=== PATIENT | male | born 1950 | race Caucasian/White ===

== ENCOUNTER → 2016-11-15 | Outpatient (CLI) | payer BC | LOC: RAD 13:34 | PROVIDERS: ATTEND Nurse Practitioner Family | DX: R09.89 Other specified symptoms and signs involving the circulatory and respiratory systems (principal) | CPT/HCPCS: 71020 ==

== ENCOUNTER → 2016-11-27 | Outpatient (CLI) | payer BC | LOC: RAD 08:34 | PROVIDERS: ATTEND Nurse Practitioner Family | DX: R74.8 Abnormal levels of other serum enzymes (principal); N13.2 Hydronephrosis with renal and ureteral calculous obstruction | CPT/HCPCS: 74177; 82565 ==

== ENCOUNTER → 2016-12-11 | Outpatient (CLI) | payer BC | LOC: RAD 10:06 | PROVIDERS: ATTEND Urology | DX: N20.0 Calculus of kidney (principal) | CPT/HCPCS: 78707; A9562 ==

== ENCOUNTER → 2018-08-25 | Outpatient (CLI) | payer BC, MEDICARE ==
--- NOTE | 2018-08-25 16:47 | RADIOLOGY REPORT (SQ) ---
EXAM DESCRIPTION: CHEST PA/LATERAL COMPLETED DATE/TIME: 08/25/2018 4:37 pm REASON FOR STUDY: COPD COMPARISON: 11/15/2016. EXAM PARAMETERS: NUMBER OF VIEWS: two views TECHNIQUE: Digital Frontal and Lateral radiographic views of the chest acquired. RADIATION DOSE: NA LIMITATIONS: none FINDINGS: LUNGS AND PLEURA: No opacities, masses or pneumothorax. No pleural effusion. MEDIASTINUM AND HILAR STRUCTURES: No masses or contour abnormalities. HEART AND VASCULAR STRUCTURES: Heart normal size. No evidence for failure. BONES: No acute findings. HARDWARE: None in the chest. OTHER: No other significant finding. IMPRESSION: NO SIGNIFICANT RADIOGRAPHIC FINDING IN THE CHEST. TECHNICAL DOCUMENTATION: JOB ID: [id number] [employer]- All Rights Reserved Reading location - IP/workstation name: [email or web address]
== END ==
LOC: OD 16:17
PROVIDERS: ATTEND Internal Medicine
DX: J44.9 Chronic obstructive pulmonary disease, unspecified (principal)
CPT/HCPCS: 71046

== ENCOUNTER → 2018-09-01 | Outpatient (CLI) | payer MEDICARE, BC ==
[2018-09-01 08:34] LABS: ABSOLUTE BASOPHILS # (AUTO) 0.1 10^3/uL (0.0-0.2); ABSOLUTE EOSINOPHILS # (AUTO) 0.2 10^3/uL (0.0-0.6); ABSOLUTE LYMPHOCYTES (AUTO) 1.5 10^3/uL (0.5-4.7); ABSOLUTE MONOCYTES (AUTO) 0.5 10^3/uL (0.1-1.4); ABSOLUTE NEUT (AUTO) 2.5 10^3/uL (1.7-8.2); BASOPHILS % (AUTO) 1.1 % (0-2); EOSINOPHILS % (AUTO) 4.2 % (0-6); HEMATOCRIT 49.7 % (37.9-51.0); HEMOGLOBIN 17.3 g/dL (13.5-17.0); LYMPHOCYTES % (AUTO) 31.1 % (13-45); MEAN CORPUSCULAR HEMOGLOBIN 30.9 pg (27.0-33.4); MEAN CORPUSCULAR HGB CONC 34.7 g/dL (32.0-36.0); MEAN CORPUSCULAR VOLUME 89 fl (80-97); PLATELET COUNT 174 10^3/uL (150-450); RED BLOOD COUNT 5.59 10^6/uL (4.35-5.55); RED CELL DISTRIBUTION WIDTH 13.4 % (11.5-14.0); SEGMENTED NEUTROPHILS % (AUTO) 52.6 % (42-78); TOTAL CELLS COUNTED % (AUTO) 100 %; WHITE BLOOD COUNT 4.8 10^3/uL (4.0-10.5)
[2018-09-01 08:38] LABS: APPEARANCE,URINE CLEAR; BILIRUBIN,URINE NEGATIVE (NEGATIVE); COLOR,URINE YELLOW; GLUCOSE, URINE NEGATIVE (NEGATIVE); KETONES,URINE NEGATIVE (NEGATIVE); LEUKOCYTE ESTERASE,URINE NEGATIVE (NEGATIVE); NITRITE,URINE NEGATIVE (NEGATIVE); PROTEIN,URINE NEGATIVE (NEGATIVE); URINE SPECIFIC GRAVITY 1.011; UROBILINOGEN,URINE NEGATIVE mg/dL (<2.0)
[2018-09-01 08:55] LABS: ALANINE AMINOTRANSFERASE 113 U/L (21-72); ALBUMIN 4.4 g/dL (3.5-5.0); ALKALINE PHOSPHATASE 70 U/L (38-126); ANION GAP 10 (5-19); ASPARTATE AMINO TRANSFERASE 93 U/L (17-59); BILIRUBIN,DIRECT 0.2 mg/dL (0.0-0.4); BILIRUBIN,TOTAL 0.7 mg/dL (0.2-1.3); BLOOD UREA NITROGEN 21 mg/dL (7-20); CALCIUM 9.9 mg/dL (8.4-10.2); CARBON DIOXIDE 27 mmol/L (22-30); CHLORIDE 101 mmol/L (98-107); CHOLESTEROL 152.07 mg/dL (0-200); GAMMA-GLUTAMYL TRANSFERASE 171 U/L (8-78); GLUCOSE 117 mg/dL (75-110); POTASSIUM 4.4 mmol/L (3.6-5.0); SODIUM 137.6 mmol/L (137-145); TOTAL PROTEIN 6.8 g/dL (6.3-8.2); TRIGLYCERIDES 57 mg/dL (<150)
[2018-09-01 09:06] LABS: DIRECT LDL 84 mg/dL (<100)
[2018-09-02 13:39] LABS: CREATININE URINE 82.7 mg/dL (Not Estab.)
== END ==
LOC: OD 07:07
PROVIDERS: ATTEND Internal Medicine
DX: N40.0 Benign prostatic hyperplasia without lower urinary tract symptoms (principal); E29.1 Testicular hypofunction; R94.5 Abnormal results of liver function studies; D64.9 Anemia, unspecified; R10.9 Unspecified abdominal pain; E03.9 Hypothyroidism, unspecified; E11.8 Type 2 diabetes mellitus with unspecified complications
CPT/HCPCS: 36415; 80053; 80061; 80074; 81001; 82043; 82390; 82570; 82977; 83036; 84436; 84443; 84481; 85025; 86038; 86235; 86256

== ENCOUNTER → 2018-09-01 | Outpatient (CLI) | payer BC, MEDICARE ==
--- NOTE | 2018-09-01 19:09 | XCELERA REPORT ---
[address] [address] Transthoracic Echocardiogram Report Name: KINSEY FIERRO Age: 68 yrs Gender: Male : 1950 Patient Status: Outpatient Patient Location: Study Date: 09/01/2018 09:05 AM Procedure: A complete two-dimensional transthoracic echocardiogram was performed (2D, M-mode, spectral and color flow Doppler). The study was technically difficult with many images being suboptimal in quality. Reason For Study: CHF Ordering Physician: CHIQUITA GARIBAY Performed By: Pearl Jordan Interpretation Summary The left ventricular ejection fraction is preserved. There is borderline concentric left ventricular hypertrophy. The left ventricle is grossly normal size. Doppler measurements suggest pseudonormalized left ventricular relaxation, which is associated with grade II/IV or mild to moderate diastolic dysfunction Wall motion cannot be accurately commented on, but no definite regional wall motion abnormalities noted. The right ventricle is mildly dilated. The right ventricle appears to be hypertrophied The right ventricular systolic function is normal. The left atrium is mildly dilated. Borderline right atrial enlargement. There is a trace amount of mitral regurgitation There is no mitral valve stenosis. There is a mild amount of aortic regurgitation There is no aortic valve stenosis There is a trace to mild amount of tricuspid regurgitation There is mild pulmonary hypertension by echo Right ventricular systolic pressure is estimated to be elevated at 30-40mmHg. The aortic root is not well visualized but is probably normal size. The inferior vena cava was not well visualized There is no pericardial effusion. MMode/2D Measurements & Calculations RVDd: 3.4 cm LVIDd: 5.3 cm FS: 35.6 % Ao root diam: 2.7 cm IVSd: 0.89 cm LVIDs: 3.4 cm EDV(Teich): 135.5 ml Ao root area: 5.6 cm2 LVPWd: 1.3 cm ESV(Teich): 48.0 ml EF(Teich): 64.6 % Doppler Measurements & Calculations MV E max emely: MV dec slope: Ao V2 max: AI max emely: 67.2 cm/sec 155.5 cm/sec 252.9 cm/sec MV A max emely: 354.8 cm/sec2 Ao max PG: AI max P.8 cm/sec MV dec time: 9.7 mmHg 25.6 mmHg MV E/A: 0.92 0.19 sec AI dec slope: 92.5 cm/sec2 AI P1/2t: 800.3 msec LV V1 max PG: PA V2 max: TR max emely: 3.1 mmHg 78.7 cm/sec 258.1 cm/sec LV V1 max: PA max P.5 mmHg TR max P.5 cm/sec 26.7 mmHg Left Ventricle The left ventricle is grossly normal size. There is borderline concentric left ventricular hypertrophy. The left ventricular ejection fraction is preserved. Doppler measurements suggest pseudonormalized left ventricular relaxation, which is associated with grade II/IV or mild to moderate diastolic dysfunction. Wall motion cannot be accurately commented on, but no definite regional wall motion abnormalities noted. Right Ventricle The right ventricle is mildly dilated. The right ventricle appears to be hypertrophied. The right ventricular systolic function is normal. Atria Borderline right atrial enlargement. The left atrium is mildly dilated. Interarterial septum not well visualized and not well dopplered. Cannot comment on ASD/PFO presence. Mitral Valve The mitral valve is grossly normal. There is no mitral valve stenosis. There is a trace amount of mitral regurgitation. Aortic Valve The aortic valve is not well visualized secondary to technical limitations. There is no aortic valve stenosis. There is a mild amount of aortic regurgitation. Tricuspid Valve The tricuspid valve is not well visualized, but is grossly normal. There is no tricuspid stenosis. There is a trace to mild amount of tricuspid regurgitation. There is mild pulmonary hypertension by echo. Right ventricular systolic pressure is estimated to be elevated at 30-40mmHg. Pulmonic Valve The pulmonic valve is not well visualized. Great Vessels The aortic root is not well visualized but is probably normal size. The inferior vena cava was not well visualized. Effusions There is no pericardial effusion. : CHIQUITA GARIBAY > Javier Mejia
== END ==
LOC: SP 07:28
PROVIDERS: ATTEND Internal Medicine
DX: I50.9 Heart failure, unspecified (principal)
CPT/HCPCS: 93306

== ENCOUNTER → 2018-09-16 | Outpatient (CLI) | payer MEDICARE, BC ==
--- NOTE | 2018-09-16 11:11 | RADIOLOGY REPORT (SQ) ---
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 Patient drank oral contrast. Images reviewed with lung, soft tissue , and bone windows. Reconstructed coronal and sagittal MPR images reviewed. Delayed images for evalua tion of the urinary system also acquired. All images stored on PACS. All CT scanners at this facility use dose modulation, iterative reconstruction, and/or weight based d osing when appropriate to reduce radiation dose to as low as reasonably achievable (ALARA). [facility]: Dose Right [facility]: CareDose [facility]: Dose Right [facility]: Teradose 4D [facility]: [employer] CONTRAST TYPE AND DOSE: contrast/concentration: Isovue 350.00 mg/ml; Total Contrast Delivered: 100.0 ml; Total Saline Delivered: 72.0 ml RENAL FUNCTION: Creatinine 1.1 RADIATION DOSE: CT Rad equipment meets quality standard of care and radiation dose reduction techniq ues were employed. CTDIvol: 26.3 - 30.0 mGy. DLP: 3330 mGy-cm.. LIMITATIONS: None. FINDINGS: LOWER CHEST: No significant findings. No nodules or infiltrates. Diffuse low attenuation from fatty infiltration LIVER: Normal size. No masses. No dilated ducts. SPLEEN: Normal size. No focal lesions. PANCREAS: No masses. No significant calcifications. No adjacent inflammation or peripancreatic fluid collections. Pancreatic duct not dilated. GALLBLADDER: No identified stones by CT criteria. No inflammatory changes to suggest cholecystitis. ADRENAL GLANDS: No significant masses or asymmetry. RIGHT KIDNEY AND URETER: Massive right hydronephrosis and hydro ureter is seen down to the level wher e the right ureter crosses over the iliac vessels. At this point, a 10 mm calculus is present, uncha nged from CT 11/27/2016. On the delayed images through the kidneys ureters and bladder there is littl e if any contrast excretion into the right renal collecting system, indicating limited right renal fu nction. LEFT KIDNEY AND URETER: No solid masses. 3 mm and 2 mm left lower pole intrarenal nonobstructive st ones. No hydronephrosis or hydroureter. AORTA AND VESSELS: No aneurysm. No dissection. Renal arteries, SMA, celiac without stenosis. RETROPERITONEUM: No retroperitoneal adenopathy, hemorrhage or masses. BOWEL AND PERITONEAL CAVITY: No masses or inflammatory changes. No free fluid or peritoneal masses. APPENDIX: Normal. PELVIS: No mass. No free fluid. Normal bladder. ABDOMINAL WALL: No masses. No hernias. BONES: No significant or acute findings. OTHER: No other significant finding. IMPRESSION: Massive right hydronephrosis and hydroureter due to high-grade right ureteral obstructio n. 10 mm stone in the right distal ureter at the level where the ureter crosses over the iliac vesse ls. TECHNICAL DOCUMENTATION: JOB ID: [id number] Quality ID # [id number]: Final reports with documentation of one or more dose reduction techniques (e.g., Au tomated exposure control, adjustment of the mA and/or kV according to patient size, use of iterative reconstruction technique) 2010 [employer]- All Rights Reserved Reading location - IP/workstation name: [email or web address]
--- NOTE | 2018-09-16 16:56 | XCELERA REPORT ---
[address] [address] Lower Extremity Venous Evaluation Procedure: A bilateral duplex scan of the lower extremity veins was performed. The evaluation included responses to compression and other maneuvers with patient in the supine and standing positions to assess venous insufficiency. Right Sided Venous Evaluation Deep venous system evaluation shows patent veins with no obstruction or significant reflux identified. Saphena Femoral junction: no reflux. Femoral vein reflux: no reflux. Greater Saphenous vein, Proximal thigh: reflux: 3.6 second reflux. 6.8 mm diameter. Greater Saphenous vein, Mid thigh: reflux: no reflux. Greater Saphenous vein, Distal thigh: reflux: 0.8 second reflux. 3.2 mm diameter. Greater Saphenous vein, Proximal below knee: reflux: no reflux. One, non refluxing Perforators identified. Left Sided Venous Evaluation Deep venous system evaluatiion shows patent veins with no obstruction or significant reflux identified. Sapheno Femoral junction: no reflux. Femoral vein reflux: no reflux. Greater Saphenous vein, Proximal thigh: reflux: no reflux. Greater Saphenous vein, Distal thigh: reflux: no reflux. Greater Saphenous vein, Proximal below knee: reflux: no reflux. No significant Perforators identified. Interpretation Summary No duplex evidence of DVT or obstruction in the bilateral lower extremities. Superficial reflux on the right as noted. Name: KINSEY FIERRO Age: 68 yrs Gender: Male : 1950 Patient Status: Outpatient Patient Location: Study Date: 09/16/2018 08:44 AM Reason For Study: VENOUS STATIS Ordering Physician: JOSE ZHU Performed By: Nathan Ball : JOSE ZHU > Joes Zhu
--- NOTE | 2018-09-16 16:58 | XCELERA REPORT ---
[address] [address] Lower Extremity Arterial Evaluation Name: KINSEY FIERRO Age: 68 yrs Gender: Male : 1950 Patient Status: Outpatient Patient Location: Study Date: 09/16/2018 08:18 AM Procedure: A color flow and duplex scan of the lower extremity arteries was performed bilaterally with velocity and waveform anaylsis. 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 Ankle Brachial index declined. Left Side Arterial Evaluation Normal velocity and triphasic waveforms noted from the Common Femoral artery to the infrageniculate vessels . Ankle Brachial index declined. Interpretation Summary No hemodynamically significant lesions in the bilateral lower extremities, on duplex imaging, at rest. : JOSE ZHU > Jose Zhu
== END ==
LOC: SP 07:07
PROVIDERS: ATTEND Surgery
DX: K75.81 Nonalcoholic steatohepatitis (NASH) (principal); R09.89 Other specified symptoms and signs involving the circulatory and respiratory systems; I87.2 Venous insufficiency (chronic) (peripheral); N13.2 Hydronephrosis with renal and ureteral calculous obstruction
CPT/HCPCS: 74177; 93925; 93970

== ENCOUNTER → 2018-11-16 | Outpatient (CLI) | payer MEDICARE, BC ==
[2018-11-16 08:34] LABS: ALANINE AMINOTRANSFERASE 58 U/L (21-72); ALBUMIN 4.1 g/dL (3.5-5.0); ALKALINE PHOSPHATASE 69 U/L (38-126); ASPARTATE AMINO TRANSFERASE 39 U/L (17-59); BILIRUBIN,DIRECT 0.3 mg/dL (0.0-0.4); BILIRUBIN,TOTAL 0.7 mg/dL (0.2-1.3); CHOLESTEROL 160.06 mg/dL (0-200); TOTAL PROTEIN 6.6 g/dL (6.3-8.2); TRIGLYCERIDES 49 mg/dL (<150)
[2018-11-16 08:50] LABS: DIRECT LDL 85 mg/dL (<100)
== END ==
LOC: OD 07:07
PROVIDERS: ATTEND Internal Medicine
DX: R21 Rash and other nonspecific skin eruption (principal); E11.8 Type 2 diabetes mellitus with unspecified complications; E78.5 Hyperlipidemia, unspecified
CPT/HCPCS: 36415; 80061; 80076; 83036

== ENCOUNTER → 2019-06-03 | Outpatient (CLI) | payer MEDICARE, BC ==
[2019-06-03 08:43] LABS: ALBUMIN 4.2 g/dL (3.5-5.0); ALKALINE PHOSPHATASE 63 U/L (38-126); ANION GAP 10 (5-19); ASPARTATE AMINO TRANSFERASE 39 U/L (17-59); BILIRUBIN,DIRECT 0.2 mg/dL (0.0-0.4); BILIRUBIN,TOTAL 0.6 mg/dL (0.2-1.3); BLOOD UREA NITROGEN 22 mg/dL (7-20); CALCIUM 9.6 mg/dL (8.4-10.2); CARBON DIOXIDE 24 mmol/L (22-30); CHLORIDE 105 mmol/L (98-107); CHOLESTEROL 187.23 mg/dL (0-200); GLUCOSE 143 mg/dL (75-110); POTASSIUM 4.2 mmol/L (3.6-5.0); TRIGLYCERIDES 53 mg/dL (<150)
[2019-06-03 09:07] LABS: DIRECT LDL 115 mg/dL (<100)
[2019-06-04 12:36] LABS: CREATININE URINE 153.3 mg/dL (Not Estab.); MICROALBUMIN URINE 5.2 ug/mL (Not Estab.)
== END ==
LOC: OD 07:04
PROVIDERS: ATTEND Family Medicine
DX: E11.9 Type 2 diabetes mellitus without complications (principal); K75.81 Nonalcoholic steatohepatitis (NASH)
CPT/HCPCS: 36415; 80053; 80061; 82043; 82570; 83036

== ENCOUNTER → 2019-06-14 | Outpatient (CLI) | payer MEDICARE, BC ==
--- NOTE | 2019-06-14 15:36 | RADIOLOGY REPORT (SQ) ---
EXAM DESCRIPTION: CT HEAD WITHOUT COMPLETED DATE/TIME: 06/14/2019 2:51 pm REASON FOR STUDY: R51 HEADACHE R51 HEADACHE COMPARISON: None. TECHNIQUE: Axial images acquired through the brain without intravenous contrast. Images reviewed wit h bone, brain and subdural windows. Images stored on PACS. All CT scanners at this facility use dose modulation, iterative reconstruction, and/or weight based d osing when appropriate to reduce radiation dose to as low as reasonably achievable (ALARA). [facility]: Dose Right [facility]: CareDose [facility]: Dose Right [facility]: Teradose 4D [facility]: [employer] RADIATION DOSE: . LIMITATIONS: None. FINDINGS: VENTRICLES: Normal size and contour. CEREBRUM: No masses. No hemorrhage. No midline shift. Age appropriate white matter. No evidence for a cute infarction. CEREBELLUM: No masses. No hemorrhage. No alteration of density. No evidence for acute infarction. EXTRA-AXIAL SPACES: No fluid collections. ORBITS AND GLOBE: No intra- or extraconal masses. Normal contour of globe without masses. CALVARIUM: No fracture. PARANASAL SINUSES: No fluid or mucosal thickening. SOFT TISSUES: No mass or hematoma. OTHER: No other significant finding. IMPRESSION: NO ACUTE INTRACRANIAL FINDINGS. EVIDENCE OF ACUTE STROKE: NO. TECHNICAL DOCUMENTATION: JOB ID: [id number] [place]-72 Quality ID # 436: Final reports with documentation of one or more dose reduction techniques (e.g., Au tomated exposure control, adjustment of the mA and/or kV according to patient size, use of iterative reconstruction technique) 2010 [employer]- All Rights Reserved Reading location - IP/workstation name: [email or web address]
--- NOTE | 2019-06-14 16:44 | RADIOLOGY REPORT (SQ) ---
EXAM DESCRIPTION: CAROTID DOPPLER COMPLETED DATE/TIME: 06/14/2019 3:36 pm REASON FOR STUDY: FREQUENT HEADACHES R51 HEADACHE COMPARISON: None. TECHNIQUE: Grayscale ultrasound, Doppler velocity and spectra, and color Doppler images acquired of the extra-cranial carotid and vertebral arteries. Images stored on PACS. LIMITATIONS: None. FINDINGS: RIGHT CAROTID CCA Velocities: Within normal limits. ICA Velocities Peak systolic 84 cm/s. End diastolic 33 cm/s. Proximal ICA/CCA peak systolic ratio 0.8. Spectra normal. Mild plaque. LEFT CAROTID CCA Velocities: Within normal limits. ICA Velocities Peak systolic 99 cm/s. End diastolic 40 cm/s. Proximal ICA/CCA peak systolic ratio 1.2. Spectra normal. Mild plaque. VERTEBRAL ARTERIES: Antegrade flow. Normal waveforms. SUBCLAVIAN ARTERIES: No finding. OTHER: No other significant finding. IMPRESSION: NO HEMODYNAMICALLY SIGNIFICANT STENOSIS. COMMENT: Quality ID #195: Velocity criteria are extrapolated from the diameter data as defined by t pablo Society of Radiologists in Ultrasound Consensus Conference. Radiology 2003: 229; 340-346. TECHNICAL DOCUMENTATION: JOB ID: [id number] [place]-72 2010 [employer]- All Rights Reserved Reading location - IP/workstation name: [email or web address]
== END ==
LOC: SP 14:29
PROVIDERS: ATTEND Family Medicine
DX: R51 Headache (principal)
CPT/HCPCS: 70450; 93880

== ENCOUNTER → 2019-08-19 | Outpatient (CLI) | payer MEDICARE, BC ==
[2019-08-19 08:31] LABS: ALKALINE PHOSPHATASE 72 U/L (38-126); ANION GAP 10 (5-19); ASPARTATE AMINO TRANSFERASE 49 U/L (17-59); BILIRUBIN,DIRECT 0.2 mg/dL (0.0-0.4); BILIRUBIN,TOTAL 0.6 mg/dL (0.2-1.3); BLOOD UREA NITROGEN 15 mg/dL (7-20); CALCIUM 9.5 mg/dL (8.4-10.2); CARBON DIOXIDE 26 mmol/L (22-30); CHLORIDE 107 mmol/L (98-107); CHOLESTEROL 129.09 mg/dL (0-200); GLUCOSE 135 mg/dL (75-110); POTASSIUM 4.2 mmol/L (3.6-5.0); TOTAL PROTEIN 6.8 g/dL (6.3-8.2); TRIGLYCERIDES 55 mg/dL (<150)
[2019-08-19 08:42] LABS: DIRECT LDL 57 mg/dL (<100)
== END ==
LOC: OD 07:08
PROVIDERS: ATTEND Family Medicine
DX: E78.5 Hyperlipidemia, unspecified (principal); E11.9 Type 2 diabetes mellitus without complications
CPT/HCPCS: 36415; 80053; 80061; 83036

== ENCOUNTER → 2019-09-17 | Outpatient (CLI) | payer MEDICARE, BC ==
--- NOTE | 2019-09-17 10:49 | RADIOLOGY REPORT (SQ) ---
EXAM DESCRIPTION: U/S ABDOMEN LIMITED W/O DOP COMPLETED DATE/TIME: 09/17/2019 8:27 am REASON FOR STUDY: VENTRAL HERNIA WITHOUT OBSTRUCTION OR GANGRENE K43.9 VENTRAL HERNIA WITHOUT OBSTR UCTION OR GANGRENE COMPARISON: CT abdomen pelvis 09/16/2018 TECHNIQUE: Dynamic and static grayscale images acquired of the abdomen and recorded on PACS. Additio nal selected color Doppler and spectral images recorded. LIMITATIONS: None. FINDINGS: Ultrasound over the anterior abdominal wall was performed to evaluate for ventral hernia. Patient has focal pain in the periumbilical and mid epigastric region. Ultrasound of the area of maximal pain demonstrates no ventral hernia during relaxation or Valsalva. IMPRESSION: No midline ventral hernia is identified in the area of patient's maximal pain. TECHNICAL DOCUMENTATION: JOB ID: [id number] [employer]- All Rights Reserved Reading location - IP/workstation name: [email or web address]
== END ==
LOC: RAD 07:58
PROVIDERS: ATTEND Family Medicine
DX: K43.9 Ventral hernia without obstruction or gangrene (principal)
CPT/HCPCS: 76705

== ENCOUNTER → 2020-01-20 | Outpatient (CLI) | payer MEDICARE, BC ==
[2020-01-20 08:39] LABS: ANION GAP 10 (5-19); BLOOD UREA NITROGEN 25 mg/dL (7-20); CALCIUM 9.9 mg/dL (8.4-10.2); CARBON DIOXIDE 21 mmol/L (22-30); CHLORIDE 106 mmol/L (98-107); GLUCOSE 132 mg/dL (75-110); POTASSIUM 4.6 mmol/L (3.6-5.0)
== END ==
LOC: OD 07:05
PROVIDERS: ATTEND Family Medicine
DX: E11.9 Type 2 diabetes mellitus without complications (principal)
CPT/HCPCS: 36415; 80048; 83036

== ENCOUNTER → 2020-04-20 | Outpatient (CLI) | payer MEDICARE, BC ==
--- NOTE | 2020-04-20 11:20 | RADIOLOGY REPORT (SQ) ---
EXAM DESCRIPTION: SHOULDER LEFT 2 OR MORE VIEWS IMAGES COMPLETED DATE/TIME: 04/20/2020 7:41 am REASON FOR STUDY: LT SHOULDER PAIN COMPARISON: None. NUMBER OF VIEWS: Three views. TECHNIQUE: Internal rotation, external rotation, and Y view images acquired of the left shoulder. LIMITATIONS: None. FINDINGS: MINERALIZATION: Normal. BONES: No acute fracture. Acromioclavicular and glenohumeral osteophytosis. JOINTS: No dislocation. VISUALIZED LUNGS AND RIBS: No pneumothorax. No rib fracture. SOFT TISSUES: No radiopaque foreign body. OTHER: No other significant finding. IMPRESSION: No evidence of acute bony abnormality of the left shoulder. Mild acromioclavicular and glenohumeral osteoarthropathy. TECHNICAL DOCUMENTATION: JOB ID: [id number] 2010 [employer]- All Rights Reserved Reading location - IP/workstation name: [email or web address]
== END ==
LOC: OD 07:22
PROVIDERS: ATTEND Family Medicine Geriatric Medicine
DX: M25.512 Pain in left shoulder (principal)

== ENCOUNTER → 2020-04-20 | Outpatient (CLI) | payer MEDICARE, BC | LOC: OD 07:12 | PROVIDERS: ATTEND Family Medicine | DX: Z12.5 Encounter for screening for malignant neoplasm of prostate (principal) | CPT/HCPCS: 36415; G0103 ==

== ENCOUNTER 2020-07-10 10:41 | Inpatient (IN) | payer MEDICARE, BC ==
[2020-07-10 12:07] LABS: ABSOLUTE LYMPHOCYTES (AUTO) 1.1 10^3/uL (0.5-4.7); ABSOLUTE MONOCYTES (AUTO) 0.5 10^3/uL (0.1-1.4); ABSOLUTE NEUT (AUTO) 2.5 10^3/uL (1.7-8.2); BASOPHILS % (AUTO) 0.6 % (0-2); EOSINOPHILS % (AUTO) 1.1 % (0-6); HEMATOCRIT 45.7 % (37.9-51.0); HEMOGLOBIN 15.5 g/dL (13.5-17.0); LYMPHOCYTES % (AUTO) 26.4 % (13-45); MEAN CORPUSCULAR HEMOGLOBIN 30.2 pg (27.0-33.4); MEAN CORPUSCULAR VOLUME 89 fl (80-97); MONOCYTES % (AUTO) 12.5 % (3-13); PLATELET COUNT 109 10^3/uL (150-450); RED BLOOD COUNT 5.13 10^6/uL (4.35-5.55); RED CELL DISTRIBUTION WIDTH 13.3 % (11.5-14.0); SEGMENTED NEUTROPHILS % (AUTO) 59.4 % (42-78); TOTAL CELLS COUNTED % (AUTO) 100 %; WHITE BLOOD COUNT 4.3 10^3/uL (4.0-10.5)
--- NOTE | 2020-07-10 12:09 | ER Document Report ---
ED General - General Chief Complaint: Shortness Of Breath Stated Complaint: COUGH,DIARRHEA,SHORT OF BREATH Time Seen by Provider: 07/10/20 12:02 TRAVEL OUTSIDE OF THE [place] IN LAST 30 DAYS: No - HPI Notes: 70-year-old male with past medical history for diabetes, hypertension, obesity to the emergency department with complaints of progressively worsening shortness of breath since he was diagnosed with COVID-19 about 6 days ago. He states he got tested when he started to have a cough and shortness of breath at the local urgent care. He states he was positive. He states that he is not given any medicine to go home with. However, over the past week he has been getting progressively more short of breath. He states he feels worse when he is exerting himself like going upstairs. He denies any chest pain, fevers, chills, nausea, vomiting, diarrhea. He states that he is fatigued and does feel weak. He feels like he cannot get a good deep breath. He is a former smoker. He is followed by Dr. Logan. - Related Data Allergies/Adverse Reactions: No Known Allergies Allergy (Verified 07/10/20 11:07) Home Medications: metformin Past Medical History - General Information source: Patient - Social History Smoking Status: Former Smoker Chew tobacco use (# tins/day): No Frequency of alcohol use: None Drug Abuse: None Family History: Reviewed & Not Pertinent Patient has homicidal ideation: No - Past Medical History Cardiac Medical History: Reports: Hx Hypercholesterolemia, Hx Hypertension Endocrine Medical History: Reports: Hx Diabetes Mellitus Type 2 - Immunizations Hx Diphtheria, Pertussis, Tetanus Vaccination: Yes Hx Pneumococcal Vaccination: 08/18/13 Review of Systems - Review of Systems Constitutional: Other - Fatigue. denies: Chills, Fever EENT: No symptoms reported Cardiovascular: denies: Chest pain, Palpitations, Heart racing, Dizziness, Lightheaded Respiratory: See HPI, Cough, Short of breath Gastrointestinal: denies: Abdominal pain, Diarrhea, Nausea, Vomiting Musculoskeletal: No symptoms reported Skin: No symptoms reported Hematologic/Lymphatic: No symptoms reported Neurological/Psychological: No symptoms reported -: Yes All other systems reviewed and negative Physical Exam - Vital signs Vitals: Temp Pulse Resp BP Pulse Ox 98.3 F 42 L 20 126/70 H 91 L 07/10/20 10:49 07/10/20 10:49 07/10/20 10:49 07/10/20 10:49 07/10/20 10:49 Interpretation: Hypoxic, Tachypneic - General General appearance: Alert Notes: Chronically ill-appearing, obese - HEENT Head: Normocephalic, Atraumatic Eyes: Normal Pupils: PERRL Neck: Normal, Supple. No: Lymphadenopathy - Respiratory Respiratory status: No respiratory distress, Tachypnea - Slightly tachypneic at 27 Chest status: Nontender. No: Accessory muscle use Breath sounds: Decreased air movement - Decreased breath sounds throughout and patient struggles to get a good breath in. He has a nonproductive cough, Nonproductive cough. No: Rales, Rhonchi, Stridor Chest palpation: Normal - Cardiovascular Rhythm: Regular Heart sounds: Normal auscultation Murmur: No Notes: Bilateral venous stasis dermatitis with trace pitting edema - Abdominal Inspection: Morbidly Obese Distension: No distension Bowel sounds: Normal Tenderness: Nontender. 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 Reid, my ER attending. He agrees with the plan for admission. Spoke with Dr. Oliveira, hospitalist. We discussed the patient's ABG, chest x- ray findings, acute kidney injury, vital signs. He agrees with the plan for admission. Aware that I ordered azithromycin and Rocephin for the patient. Also aware that patient is on 2 L of oxygen. He would like for the patient to go to regular medical floor bed. - Vital Signs Vital signs: Temp Pulse Resp BP Pulse Ox 97.9 F 42 L 31 H 129/37 H 96 07/10/20 16:57 07/10/20 10:49 07/10/20 16:49 07/10/20 16:49 07/10/20 16:16 - Laboratory Result Diagrams: 07/10/20 11:51 07/10/20 11:51 Laboratory results interpreted by me: 07/10/20 07/10/20 07/10/20 11:21 11:51 11:51 Plt Count 109 L ABG pO2 ABG Total CO2 ABG O2 Saturation Potassium 5.2 H Carbon Dioxide 21 L BUN 43 H Creatinine 1.75 H Est GFR ( Amer) 47 L Est GFR (MDRD) Non-Af 39 L Glucose 146 H POC Glucose 140 H Hemoglobin A1c % ALT 53 H NT-Pro-B Natriuret Pep 07/10/20 07/10/20 07/10/20 11:51 11:51 12:34 Plt Count ABG pO2 66.8 L ABG Total CO2 21.9 L ABG O2 Saturation 92.7 L Potassium Carbon Dioxide BUN Creatinine Est GFR ( Amer) Est GFR (MDRD) Non-Af Glucose POC Glucose Hemoglobin A1c % 7.4 H ALT NT-Pro-B Natriuret Pep 148 H - Diagnostic Test Radiology reviewed: Image reviewed, Reports reviewed - EKG Interpretation by Me Additional EKG results interpreted by me: 07/10/20 Rate: 91 Rhythm: Sinus Interpretation: No STEMI, ventricular bigeminy. No ST changes. No significant change from prior on August 2013 Discharge - Discharge Clinical Impression: Pneumonia due to COVID-19 virus, Hypoxia, Shortness of breath, Acute kidney injury Condition: Stable Disposition: ADMITTED INPATIENT Admitting Provider: Roxanne (Hospitalist) Unit Admitted: Medical Floor
--- NOTE | 2020-07-10 12:16 | EKG REPORT ---
SEVERITY:- ABNORMAL ECG - SINUS RHYTHM VENTRICULAR BIGEMINY : Confirmed by: Daniel Carney MD 10-Jul-2020 12:16:31
[2020-07-10 12:26] LABS: ALBUMIN 3.8 g/dL (3.5-5.0); ALKALINE PHOSPHATASE 65 U/L (38-126); ANION GAP 10 (5-19); ASPARTATE AMINO TRANSFERASE 57 U/L (17-59); BILIRUBIN,DIRECT 0.2 mg/dL (0.0-0.4); BILIRUBIN,TOTAL 0.6 mg/dL (0.2-1.3); BLOOD UREA NITROGEN 43 mg/dL (7-20); CALCIUM 9.6 mg/dL (8.4-10.2); CARBON DIOXIDE 21 mmol/L (22-30); CHLORIDE 106 mmol/L (98-107); GLUCOSE 146 mg/dL (75-110); POTASSIUM 5.2 mmol/L (3.6-5.0); TOTAL PROTEIN 6.4 g/dL (6.3-8.2)
[2020-07-10] MEDS ORDERED: ALBUTEROL SULFATE 0.083% NEB 2.5 MG/3 ML AMPUL NEB ONE (12:34)
[2020-07-10 12:37] LABS: CREATINE KINASE MB 1.64 ng/mL (<4.55); NT PRO BNP 148 pg/mL (<125)
[2020-07-10 12:46] LABS: TROPONIN I < 0.012 ng/mL
[2020-07-10 12:55] LABS: ARTERIAL BLOOD BASE EXCESS -4.1 mmol/L; ARTERIAL BLOOD H2CO3 1.13 mmol/L (1.05-1.35); ARTERIAL BLOOD HCO3 20.7 mmol/L (20-24); ARTERIAL BLOOD O2 SATURATION 92.7 % (94-98); ARTERIAL BLOOD PCO2 37.7 mmHg (35-45); ARTERIAL BLOOD PH 7.36 (7.35-7.45); ARTERIAL BLOOD PO2 66.8 mmHg (80-100); ARTERIAL BLOOD TOTAL CO2 21.9 mmol/L (23-27)
--- NOTE | 2020-07-10 12:57 | RADIOLOGY REPORT (SQ) ---
EXAM DESCRIPTION: CHEST SINGLE VIEW IMAGES COMPLETED DATE/TIME: 07/10/2020 12:50 pm REASON FOR STUDY: shortness of breath COMPARISON: 08/25/2018 EXAM PARAMETERS: NUMBER OF VIEWS: One view. TECHNIQUE: Single frontal radiographic view of the chest acquired. RADIATION DOSE: NA LIMITATIONS: None. FINDINGS: LUNGS AND PLEURA: Minimal left retrocardiac airspace disease. Findings are accentuated by low lung volumes. No pneumothorax. MEDIASTINUM AND HILAR STRUCTURES: No masses. Contour normal. HEART AND VASCULAR STRUCTURES: Normal allowing for degree of inspiration. BONES: No acute findings. HARDWARE: None in the chest. OTHER: No other significant finding. IMPRESSION: Low lung volumes. Left retrocardiac airspace disease either atelectasis or pneumonia. TECHNICAL DOCUMENTATION: JOB ID: [id number] 2010 [employer]- All Rights Reserved Reading location - IP/workstation name: [email or web address]
[2020-07-10 13:18] LABS: ARTERIAL BLOOD FIO2 ROOM AIR
[2020-07-10] MEDS ORDERED: CEFTRIAXONE 1 GM/D5W RTU 1 GM/50 ML RTUPB IV ONE (14:08)
[2020-07-10] MEDS ORDERED: AZITHROMYCIN INJ 500 MG VIAL IV ONE (14:08)
[2020-07-10] MEDS ORDERED: ACETAMINOPHEN 325 MG TABLET PO PRN (15:04)
[2020-07-10] MEDS ORDERED: DEXTROSE 50%-WATER 25 GM/50 ML DISP.SYRIN IV PRN ×2 (15:08)
[2020-07-10] MEDS ORDERED: DEXTROSE 40% GEL 15 GM TUBE PO PRN ×2 (15:08)
[2020-07-10] MEDS ORDERED: GLUCAGON,HUMAN RECOMB 1 MG INJ IM PRN (15:08)
[2020-07-10] MEDS: INSULIN LISPRO 100 UNIT/ML 3 ML VIAL SUBCUT SCH ×2 (15:44→22:13)
[2020-07-10] MEDS: DEXAMETHASONE SOD PHOSPHATE INJ 4 MG/1 ML VIAL IV SCH (16:51)
[2020-07-10] MEDS: NORMAL SALINE 1000 ML 1,000 ML IV PRN (16:51)
[2020-07-10 17:14] LABS: APPEARANCE,URINE CLEAR; BILIRUBIN,URINE NEGATIVE (NEGATIVE); COLOR,URINE YELLOW; GLUCOSE, URINE NEGATIVE (NEGATIVE); KETONES,URINE NEGATIVE (NEGATIVE); LEUKOCYTE ESTERASE,URINE NEGATIVE (NEGATIVE); NITRITE,URINE NEGATIVE (NEGATIVE); PROTEIN,URINE NEGATIVE (NEGATIVE); URINE SPECIFIC GRAVITY 1.021; UROBILINOGEN,URINE NEGATIVE mg/dL (<2.0)
--- NOTE | 2020-07-10 17:18 | PDOC H&P ---
History of Present Illness Admission Date/PCP: 07/10/20 14:31 RONI DE LEÓN MD Patient complains of: Shortness of breath History of Present Illness: KINSEY FIERRO is a 70 year old male with past medical history for diabetes, hypertension, obesity presents to the emergency department with complaints of progressively worsening shortness of breath for the past 6 days since he was diagnosed with COVID-19. He complains of cough and shortness of breath. His symptoms have been getting progressively worse. His symptoms increased with exertion. Also associated with weakness and fatigue. When he came to the emergency room today for an evaluation he was hypoxic and started on oxygen via nasal cannula. Past Medical History Cardiac Medical History: Reports: Hyperlipidema, Hypertension Endocrine Medical History: Reports: Diabetes Mellitus Type 2 Social History Smoking Status: Former Smoker Electronic Cigarette use?: No Family History Family History: Reviewed & Not Pertinent Parental Family History Reviewed: Yes Children Family History Reviewed: Yes Sibling(s) Family History Reviewed.: Yes Medication/Allergy Home Medications: Atorvastatin Calcium [Lipitor 40 mg Tablet] 40 mg PO QHS 07/10/20 Metformin HCl [Metformin HCl ER] 1,000 mg PO QAM 07/10/20 Metformin HCl [Metformin HCl ER] 500 mg PO QPM 07/10/20 Tamsulosin HCl [Flomax 0.4 mg Cap.sr] 0.4 mg PO DAILY 07/10/20 Telmisartan/Hydrochlorothiazid [Telmisartan-Hctz 80-12.5 mg Tb] 1 each PO DAILY 07/10/20 Allergies/Adverse Reactions: No Known Allergies Allergy (Verified 07/10/20 11:07) Physical Exam Vital Signs: Temp Pulse Resp BP Pulse Ox 97.9 F 42 L 31 H 129/37 H 96 07/10/20 16:57 07/10/20 10:49 07/10/20 16:49 07/10/20 16:49 07/10/20 16:16 Intake & Output 07/09/20 07/10/20 07/11/20 06:59 06:59 06:59 Intake Total 150 Balance 150 Weight 306 lb 14.135 oz General appearance: PRESENT: mild distress, obese Head exam: PRESENT: atraumatic, normocephalic Eye exam: PRESENT: EOMI, PERRLA Ear exam: ABSENT: bleeding, drainage Mouth exam: PRESENT: moist, neck supple, tongue midline Neck exam: ABSENT: meningismus, tenderness Respiratory exam: PRESENT: rhonchi. ABSENT: accessory muscle use Cardiovascular exam: PRESENT: RRR, +S1, +S2 Pulses: PRESENT: normal radial pulses GI/Abdominal exam: PRESENT: normal bowel sounds, soft. ABSENT: tenderness Extremities exam: ABSENT: pedal edema Neurological exam: PRESENT: alert, awake, oriented to person, oriented to place, oriented to situation Results Laboratory Results: 07/10/20 11:51 07/10/20 11:51 07/10/20 07/10/20 07/10/20 11:51 11:51 12:34 WBC 4.3 RBC 5.13 Hgb 15.5 Hct 45.7 MCV 89 MCH 30.2 MCHC 34.0 RDW 13.3 Plt Count 109 L Seg Neutrophils % 59.4 Carbonic Acid 1.13 HCO3/H2CO3 Ratio 18:1 ABG pH 7.36 ABG pCO2 37.7 ABG pO2 66.8 L ABG HCO3 20.7 ABG O2 Saturation 92.7 L ABG Base Excess -4.1 FiO2 ROOM AIR Sodium 137.3 Potassium 5.2 H Chloride 106 Carbon Dioxide 21 L Anion Gap 10 BUN 43 H Creatinine 1.75 H Est GFR ( Amer) 47 L Glucose 146 H Lactic Acid Calcium 9.6 Total Bilirubin 0.6 AST 57 Alkaline Phosphatase 65 Total Protein 6.4 Albumin 3.8 07/10/20 14:20 WBC RBC Hgb Hct MCV MCH MCHC RDW Plt Count Seg Neutrophils % Carbonic Acid HCO3/H2CO3 Ratio ABG pH ABG pCO2 ABG pO2 ABG HCO3 ABG O2 Saturation ABG Base Excess FiO2 Sodium Potassium Chloride Carbon Dioxide Anion Gap BUN Creatinine Est GFR ( Amer) Glucose Lactic Acid 1.2 Calcium Total Bilirubin AST Alkaline Phosphatase Total Protein Albumin 07/10/20 11:51 CK-MB (CK-2) 1.64 Troponin I < 0.012 NT-Pro-B Natriuret Pep 148 H Impressions: Chest X-Ray 07/10/20 11:29 IMPRESSION: Low lung volumes. Left retrocardiac airspace disease either atelectasis or pneumonia. Assessment and Plan - Diagnosis (1) Pneumonia due to COVID-19 virus Is this a current diagnosis for this admission?: Yes Plan: Oxygen as needed Start remdesivir and dexamethasone Lovenox for DVT prophylaxis (2) Acute kidney injury Is this a current diagnosis for this admission?: Yes Plan: IV fluids Monitor renal function Hold hydrochlorothiazide and telmisartan (3) Acute hypoxemic respiratory failure due to COVID-19 Is this a current diagnosis for this admission?: Yes Plan: Oxygen as needed (4) Diabetes Is this a current diagnosis for this admission?: Yes Plan: Hold Metformin because of renal failure Start insulin sliding scale Check hemoglobin A1c Diabetes diet (5) Hypertension Is this a current diagnosis for this admission?: Yes Plan: Monitor blood pressure Hold hydrochlorothiazide and telmisartan due to renal failure (6) Dyslipidemia Is this a current diagnosis for this admission?: Yes Plan: Continue atorvastatin - Time Anticipated Discharge Disposition: Home, Self Care Anticipated Discharge Timeframe: na
[2020-07-10] MEDS ORDERED: REMDESIVIR 200 MG in NORMAL SALINE 250 ML IV ONE (18:00)
[2020-07-10] MEDS: ATORVASTATIN CALCIUM 40 MG TABLET PO SCH (22:13)
[2020-07-11] MEDS: NORMAL SALINE 1000 ML 1,000 ML IV PRN ×2 (02:35→16:36)
[2020-07-11] MEDS ORDERED: INFLUENZA QUAD (6MOS+) 2020-21 VAC 0.5 ML SYR IM ONE (08:00)
[2020-07-11] MEDS: INSULIN LISPRO 100 UNIT/ML 3 ML VIAL SUBCUT SCH ×4 (09:04→21:26)
[2020-07-11] MEDS: DEXAMETHASONE SOD PHOSPHATE INJ 4 MG/1 ML VIAL IV SCH (09:18)
[2020-07-11] MEDS: TAMSULOSIN HCL 0.4 MG CAP.SR.24H PO SCH (09:19)
[2020-07-11] MEDS: ENOXAPARIN SODIUM INJ 40 MG/0.4 ML DISP.SYRIN SUBCUT SCH (09:19)
[2020-07-11 09:28] LABS: HEMATOCRIT 46.5 % (37.9-51.0); HEMOGLOBIN 15.8 g/dL (13.5-17.0); MEAN CORPUSCULAR HEMOGLOBIN 30.2 pg (27.0-33.4); MEAN CORPUSCULAR HGB CONC 33.9 g/dL (32.0-36.0); MEAN CORPUSCULAR VOLUME 89 fl (80-97); PLATELET COUNT 121 10^3/uL (150-450); RED BLOOD COUNT 5.23 10^6/uL (4.35-5.55); RED CELL DISTRIBUTION WIDTH 13.5 % (11.5-14.0)
[2020-07-11 09:29] LABS: WHITE BLOOD COUNT 2.8 10^3/uL (4.0-10.5)
[2020-07-11 09:40] LABS: ANION GAP 11 (5-19); BLOOD UREA NITROGEN 36 mg/dL (7-20); CALCIUM 9.2 mg/dL (8.4-10.2); CARBON DIOXIDE 18 mmol/L (22-30); CHLORIDE 108 mmol/L (98-107); GLUCOSE 191 mg/dL (75-110); POTASSIUM 5.1 mmol/L (3.6-5.0)
[2020-07-11] MEDS: REMDESIVIR 100 MG in NORMAL SALINE 250 ML IV SCH (09:47)
[2020-07-11] MEDS ORDERED: HYDROCHLOROTHIAZIDE 12.5 MG TABLET PO SCH (10:00)
[2020-07-11] MEDS ORDERED: (PENDING PHARMACY ID) (Telmisartan/Hydrochlorothiazid [Telmisartan-Hctz 80-12.5 Mg Tb] 1 E PO SCH ×2 (10:00)
[2020-07-11] MEDS ORDERED: LOSARTAN POTASSIUM 50 MG TABLET PO SCH (10:00)
--- NOTE | 2020-07-11 12:23 | PDOC PROGRESS REPORT ---
Subjective Date:: 07/11/20 Subjective:: History of Present Illness: KINSEY FIERRO is a 70 year old male with past medical history for diabetes, hypertension, obesity presents to the emergency department with complaints of progressively worsening shortness of breath for the past 6 days since he was diagnosed with COVID-19. He complains of cough and shortness of breath. His symptoms have been getting progressively worse. His symptoms increased with exertion. Also associated with weakness and fatigue. When he came to the emergency room today for an evaluation he was hypoxic and started on oxygen via nasal cannula. Interval history: 07/11/2020: Patient seen and examined. Is doing better today. Still needing 2 L of nasal cannula oxygen. Elevating treatment so far. Reason For Visit: COVID PNEMONIA Physical Exam Vital Signs: Temp Pulse Resp BP Pulse Ox 97.6 F 66 20 111/66 95 07/11/20 08:57 07/11/20 08:57 07/11/20 08:57 07/11/20 08:57 07/11/20 08:57 Intake & Output 07/10/20 07/11/20 07/12/20 06:59 06:59 06:59 Intake Total 1363 Balance 1363 Weight 303 lb 5.697 oz Exam: General appearance: PRESENT: mild distress, obese Head exam: PRESENT: atraumatic, normocephalic Eye exam: PRESENT: EOMI, PERRLA Ear exam: ABSENT: bleeding, drainage Mouth exam: PRESENT: moist, neck supple, tongue midline Neck exam: ABSENT: meningismus, tenderness Respiratory exam: PRESENT: rhonchi. ABSENT: accessory muscle use Cardiovascular exam: PRESENT: RRR, +S1, +S2 Pulses: PRESENT: normal radial pulses GI/Abdominal exam: PRESENT: normal bowel sounds, soft. ABSENT: tenderness Extremities exam: ABSENT: pedal edema Neurological exam: PRESENT: alert, awake, oriented to person, oriented to place, oriented to situation Results Laboratory Results: 07/11/20 09:00 07/11/20 09:00 07/10/20 07/10/20 07/10/20 11:51 12:34 14:20 WBC RBC Hgb Hct MCV MCH MCHC RDW Plt Count Carbonic Acid 1.13 HCO3/H2CO3 Ratio 18:1 ABG pH 7.36 ABG pCO2 37.7 ABG pO2 66.8 L ABG HCO3 20.7 ABG O2 Saturation 92.7 L ABG Base Excess -4.1 FiO2 ROOM AIR Sodium 137.3 Potassium 5.2 H Chloride 106 Carbon Dioxide 21 L Anion Gap 10 BUN 43 H Creatinine 1.75 H Est GFR ( Amer) 47 L Glucose 146 H Lactic Acid 1.2 Calcium 9.6 Total Bilirubin 0.6 AST 57 Alkaline Phosphatase 65 Total Protein 6.4 Albumin 3.8 Urine Color Urine Appearance Urine pH Ur Specific [place] Urine Protein Urine Glucose (UA) Urine Ketones Urine Blood Urine Nitrite Ur Leukocyte Esterase Urine WBC (Auto) Urine RBC (Auto) 07/10/20 07/11/20 07/11/20 16:50 09:00 09:00 WBC 2.8 L D RBC 5.23 Hgb 15.8 Hct 46.5 MCV 89 MCH 30.2 MCHC 33.9 RDW 13.5 Plt Count 121 L Carbonic Acid HCO3/H2CO3 Ratio ABG pH ABG pCO2 ABG pO2 ABG HCO3 ABG O2 Saturation ABG Base Excess FiO2 Sodium 136.7 L Potassium 5.1 H Chloride 108 H Carbon Dioxide 18 L Anion Gap 11 BUN 36 H Creatinine 1.11 Est GFR ( Amer) > 60 Glucose 191 H Lactic Acid Calcium 9.2 Total Bilirubin AST Alkaline Phosphatase Total Protein Albumin Urine Color YELLOW Urine Appearance CLEAR Urine pH 5.0 Ur Specific [place] 1.021 Urine Protein NEGATIVE Urine Glucose (UA) NEGATIVE Urine Ketones NEGATIVE Urine Blood NEGATIVE Urine Nitrite NEGATIVE Ur Leukocyte Esterase NEGATIVE Urine WBC (Auto) 3 Urine RBC (Auto) 1 07/10/20 11:51 CK-MB (CK-2) 1.64 Troponin I < 0.012 NT-Pro-B Natriuret Pep 148 H Impressions: Chest X-Ray 07/10/20 11:29 IMPRESSION: Low lung volumes. Left retrocardiac airspace disease either atelectasis or pneumonia. Assessment and Plan - Diagnosis (1) Pneumonia due to COVID-19 virus Is this a current diagnosis for this admission?: Yes (2) Acute kidney injury Is this a current diagnosis for this admission?: Yes (3) Acute hypoxemic respiratory failure due to COVID-19 Is this a current diagnosis for this admission?: Yes (4) Diabetes Is this a current diagnosis for this admission?: Yes (5) Hypertension Is this a current diagnosis for this admission?: Yes (6) Dyslipidemia Is this a current diagnosis for this admission?: Yes - Plan Summary Summary: Assessment and Plan (1) Pneumonia due to COVID-19 virus Oxygen as needed Continue remdesivir and dexamethasone Lovenox for DVT prophylaxis (2) Acute kidney injury IV fluids Monitor renal function Hold hydrochlorothiazide and telmisartan (3) Acute hypoxemic respiratory failure due to COVID-19 Oxygen as needed (4) Diabetes Hold Metformin because of renal failure Continue insulin sliding scale Hemoglobin A1c is 7.4 Diabetes diet (5) Hypertension Monitor blood pressure Hold hydrochlorothiazide and telmisartan due to renal failure (6) Dyslipidemia Continue atorvastatin - Time Anticipated Discharge Disposition: Home, Self Care Anticipated Discharge Timeframe: within 72 hours
[2020-07-11] MEDS: ATORVASTATIN CALCIUM 40 MG TABLET PO SCH (21:24)
[2020-07-12] MEDS: NORMAL SALINE 1000 ML 1,000 ML IV PRN (03:30)
[2020-07-12 05:23] LABS: HEMATOCRIT 44.5 % (37.9-51.0); HEMOGLOBIN 15.1 g/dL (13.5-17.0); MEAN CORPUSCULAR HEMOGLOBIN 30.1 pg (27.0-33.4); MEAN CORPUSCULAR HGB CONC 33.9 g/dL (32.0-36.0); MEAN CORPUSCULAR VOLUME 89 fl (80-97); PLATELET COUNT 130 10^3/uL (150-450); RED BLOOD COUNT 5.01 10^6/uL (4.35-5.55); RED CELL DISTRIBUTION WIDTH 13.2 % (11.5-14.0); WHITE BLOOD COUNT 5.1 10^3/uL (4.0-10.5)
[2020-07-12 05:45] LABS: ANION GAP 10 (5-19); BLOOD UREA NITROGEN 35 mg/dL (7-20); CARBON DIOXIDE 19 mmol/L (22-30); CHLORIDE 108 mmol/L (98-107); GLUCOSE 152 mg/dL (75-110); POTASSIUM 4.8 mmol/L (3.6-5.0)
[2020-07-12] MEDS: TAMSULOSIN HCL 0.4 MG CAP.SR.24H PO SCH (10:11)
[2020-07-12] MEDS: DEXAMETHASONE SOD PHOSPHATE INJ 4 MG/1 ML VIAL IV SCH (10:11)
[2020-07-12] MEDS: ENOXAPARIN SODIUM INJ 40 MG/0.4 ML DISP.SYRIN SUBCUT SCH (10:11)
[2020-07-12] MEDS: INSULIN LISPRO 100 UNIT/ML 3 ML VIAL SUBCUT SCH ×2 (10:34→14:08)
--- NOTE | 2020-07-12 11:42 | PDOC DISCHARGE SUMMARY ---
Impression - Admit/DC Date/PCP Admission Date/Primary Care Provider: 07/10/20 14:31 RONI DE LEÓN MD Discharge Date: 07/12/20 - Discharge Diagnosis (1) Pneumonia due to COVID-19 virus Is this a current diagnosis for this admission?: Yes (2) Acute kidney injury Is this a current diagnosis for this admission?: Yes (3) Acute hypoxemic respiratory failure due to COVID-19 Is this a current diagnosis for this admission?: Yes (4) Diabetes Is this a current diagnosis for this admission?: Yes (5) Hypertension Is this a current diagnosis for this admission?: Yes (6) Dyslipidemia Is this a current diagnosis for this admission?: Yes - Assessment Summary: Assessment and Plan (1) Pneumonia due to COVID-19 virus Oxygen as needed Continue remdesivir and dexamethasone Lovenox for DVT prophylaxis (2) Acute kidney injury IV fluids Monitor renal function Hold hydrochlorothiazide and telmisartan (3) Acute hypoxemic respiratory failure due to COVID-19 Oxygen as needed (4) Diabetes Hold Metformin because of renal failure Continue insulin sliding scale Hemoglobin A1c is 7.4 Diabetes diet (5) Hypertension Monitor blood pressure Hold hydrochlorothiazide and telmisartan due to renal failure (6) Dyslipidemia Continue atorvastatin - Additional Information Discharge Activity: Activity As Tolerated Referrals: RONI DE LEÓN MD [Primary Care Provider] - Follow up as needed Home Medications: Atorvastatin Calcium [Lipitor 40 mg Tablet] 40 mg PO QHS 07/10/20 Metformin HCl [Metformin HCl ER] 1,000 mg PO QAM 07/10/20 Metformin HCl [Metformin HCl ER] 500 mg PO QPM 07/10/20 Tamsulosin HCl [Flomax 0.4 mg Cap.sr] 0.4 mg PO DAILY 07/10/20 Telmisartan/Hydrochlorothiazid [Telmisartan-Hctz 80-12.5 mg Tb] 1 each PO DAILY 07/10/20 History of Present Illiness History of Present Illness: KINSEY FIERRO is a 70 year old male with past medical history for diabetes, hypertension, obesity presents to the emergency department with complaints of progressively worsening shortness of breath for the past 6 days since he was diagnosed with COVID-19. He complains of cough and shortness of breath. His symptoms have been getting progressively worse. His symptoms increased with exertion. Also associated with weakness and fatigue. When he came to the emergency room today for an evaluation he was hypoxic and started on oxygen via nasal cannula. Hospital Course Hospital Course: Interval history: 07/11/2020: Patient seen and examined. Is doing better today. Still needing 2 L of nasal cannula oxygen. Elevating treatment so far. Summary: (1) Pneumonia due to COVID-19 virus Patient received oxygen as needed Patient received remdesivir and dexamethasone Lovenox for DVT prophylaxis (2) Acute kidney injury Patient received IV fluids We monitored renal function We held hydrochlorothiazide and telmisartan (3) Acute hypoxemic respiratory failure due to COVID-19 Oxygen as needed (4) Diabetes We held Metformin because of renal failure Continue insulin sliding scale Hemoglobin A1c is 7.4 Diabetes diet (5) Hypertension We monitor blood pressure We held hydrochlorothiazide and telmisartan due to renal failure (6) Dyslipidemia Continue atorvastatin Patient is currently stable without oxygen. His renal function is normal. He is stable for discharge. Cussed with the patient and he agrees. Discussed quarantine guidelines. Physical Exam Vital Signs: Temp Pulse Resp BP Pulse Ox 97.5 F 51 L 16 111/42 L 97 07/11/20 23:38 07/12/20 07:00 07/12/20 04:19 07/12/20 04:19 07/12/20 04:19 Intake & Output 07/11/20 07/12/20 07/13/20 06:59 06:59 06:59 Intake Total 1363 3250 Output Total 1050 Balance 1363 2200 Weight 303 lb 5.697 oz 305 lb 1.916 oz Exam: General appearance: PRESENT: mild distress, obese Head exam: PRESENT: atraumatic, normocephalic Eye exam: PRESENT: EOMI, PERRLA Ear exam: ABSENT: bleeding, drainage Mouth exam: PRESENT: moist, neck supple, tongue midline Neck exam: ABSENT: meningismus, tenderness Respiratory exam: PRESENT: rhonchi. ABSENT: accessory muscle use Cardiovascular exam: PRESENT: RRR, +S1, +S2 Pulses: PRESENT: normal radial pulses GI/Abdominal exam: PRESENT: normal bowel sounds, soft. ABSENT: tenderness Extremities exam: ABSENT: pedal edema Neurological exam: PRESENT: alert, awake, oriented to person, oriented to place, oriented to situation Results Laboratory Results: WBC 5.1 10^3/uL (4.0-10.5) 07/12/20 04:35 RBC 5.01 10^6/uL (4.35-5.55) 07/12/20 04:35 Hgb 15.1 g/dL (13.5-17.0) 07/12/20 04:35 Hct 44.5 % (37.9-51.0) 07/12/20 04:35 MCV 89 fl (80-97) 07/12/20 04:35 MCH 30.1 pg (27.0-33.4) 07/12/20 04:35 MCHC 33.9 g/dL (32.0-36.0) 07/12/20 04:35 RDW 13.2 % (11.5-14.0) 07/12/20 04:35 Plt Count 130 10^3/uL (150-450) L 07/12/20 04:35 Lymph % (Auto) 26.4 % (13-45) 07/10/20 11:51 [place] % (Auto) 12.5 % (3-13) 07/10/20 11:51 Eos % (Auto) 1.1 % (0-6) 07/10/20 11:51 Baso % (Auto) 0.6 % (0-2) 07/10/20 11:51 Absolute Neuts (auto) 2.5 10^3/uL (1.7-8.2) 07/10/20 11:51 Absolute Lymphs (auto) 1.1 10^3/uL (0.5-4.7) 07/10/20 11:51 Absolute Monos (auto) 0.5 10^3/uL (0.1-1.4) 07/10/20 11:51 Absolute Eos (auto) 0.0 10^3/uL (0.0-0.6) 07/10/20 11:51 Absolute Basos (auto) 0.0 10^3/uL (0.0-0.2) 07/10/20 11:51 Seg Neutrophils % 59.4 % (42-78) 07/10/20 11:51 Carbonic Acid 1.13 mmol/L (1.05-1.35) 07/10/20 12:34 HCO3/H2CO3 Ratio 18:1 07/10/20 12:34 ABG pH 7.36 (7.35-7.45) 07/10/20 12:34 ABG pCO2 37.7 mmHg (35-45) 07/10/20 12:34 ABG pO2 66.8 mmHg (80-100) L 07/10/20 12:34 ABG HCO3 20.7 mmol/L (20-24) 07/10/20 12:34 ABG Total CO2 21.9 mmol/L (23-27) L 07/10/20 12:34 ABG O2 Saturation 92.7 % (94-98) L 07/10/20 12:34 ABG Base Excess -4.1 mmol/L 07/10/20 12:34 FiO2 ROOM AIR 07/10/20 12:34 Sodium 137.1 mmol/L (137-145) 07/12/20 04:35 Potassium 4.8 mmol/L (3.6-5.0) 07/12/20 04:35 Chloride 108 mmol/L (98-107) H 07/12/20 04:35 Carbon Dioxide 19 mmol/L (22-30) L 07/12/20 04:35 Anion Gap 10 (5-19) 07/12/20 04:35 BUN 35 mg/dL (7-20) H 07/12/20 04:35 Creatinine 1.09 mg/dL (0.52-1.25) 07/12/20 04:35 Est GFR ( Amer) > 60 (>60) 07/12/20 04:35 Est GFR (MDRD) Non-Af > 60 (>60) 07/12/20 04:35 Glucose 152 mg/dL (75-110) H 07/12/20 04:35 POC Glucose 129 mg/dL (70-110) H 07/12/20 08:40 Hemoglobin A1c % 7.4 % (4.7-6.0) H 07/10/20 11:51 Lactic Acid 1.2 mmol/L (0.7-2.1) 07/10/20 14:20 Calcium 9.0 mg/dL (8.4-10.2) 07/12/20 04:35 Total Bilirubin 0.6 mg/dL (0.2-1.3) 07/10/20 11:51 Direct Bilirubin 0.2 mg/dL (0.0-0.4) 07/10/20 11:51 Neonat Total Bilirubin Not Reportable 07/10/20 11:51 Neonat Direct Bilirubin Not Reportable 07/10/20 11:51 Neonat Indirect Bili Not Reportable 07/10/20 11:51 AST 57 U/L (17-59) 07/10/20 11:51 ALT 53 U/L (<50) H 07/10/20 11:51 Alkaline Phosphatase 65 U/L (38-126) 07/10/20 11:51 CK-MB (CK-2) 1.64 ng/mL (<4.55) 07/10/20 11:51 Troponin I < 0.012 ng/mL 07/10/20 11:51 NT-Pro-B Natriuret Pep 148 pg/mL (<125) H 07/10/20 11:51 Total Protein 6.4 g/dL (6.3-8.2) 07/10/20 11:51 Albumin 3.8 g/dL (3.5-5.0) 07/10/20 11:51 TSH 1.71 uIU/mL (0.47-4.68) 07/12/20 04:35 Urine Color YELLOW 07/10/20 16:50 Urine Appearance CLEAR 07/10/20 16:50 Urine pH 5.0 (5.0-9.0) 07/10/20 16:50 Ur Specific [place] 1.021 07/10/20 16:50 Urine Protein NEGATIVE mg/dL (NEGATIVE) 07/10/20 16:50 Urine Glucose (UA) NEGATIVE mg/dL (NEGATIVE) 07/10/20 16:50 Urine Ketones NEGATIVE mg/dL (NEGATIVE) 07/10/20 16:50 Urine Blood NEGATIVE (NEGATIVE) 07/10/20 16:50 Urine Nitrite NEGATIVE (NEGATIVE) 07/10/20 16:50 Urine Bilirubin NEGATIVE (NEGATIVE) 07/10/20 16:50 Urine Urobilinogen NEGATIVE mg/dL (<2.0) 07/10/20 16:50 Ur Leukocyte Esterase NEGATIVE (NEGATIVE) 07/10/20 16:50 Urine WBC (Auto) 3 /HPF 07/10/20 16:50 Urine RBC (Auto) 1 /HPF 07/10/20 16:50 U Hyaline Cast (Auto) 22 /LPF 07/10/20 16:50 Urine Bacteria (Auto) TRACE /HPF 07/10/20 16:50 Squamous Epi Cells Auto <1 /HPF 07/10/20 16:50 Urine Mucus (Auto) OCC /LPF 07/10/20 16:50 Urine Ascorbic Acid NEGATIVE (NEGATIVE) 07/10/20 16:50 07/10/20 11:51 CK-MB (CK-2) 1.64 Troponin I < 0.012 NT-Pro-B Natriuret Pep 148 H Impressions: Chest X-Ray 07/10/20 11:29 IMPRESSION: Low lung volumes. Left retrocardiac airspace disease either atelectasis or pneumonia. Stroke Is this a Stroke Patient?: No Acute Heart Failure Is this a Heart Failure Patient?: No
--- NOTE | 2020-07-12 12:37 | EKG REPORT ---
SEVERITY:- NORMAL ECG - SINUS RHYTHM : Confirmed by: Daniel Carney MD 12-Jul-2020 12:37:12
[2020-07-12 12:43] VITALS: BP 111/66
[2020-07-12] MEDS: REMDESIVIR 100 MG in NORMAL SALINE 250 ML IV SCH (12:49)
== END 2020-07-12 14:15 | disposition home or self-care (01) | DRG 177 ==
LOC: ER 10:41 → EH 14:31 → 3N 17:33
PROVIDERS: ADMIT Family Medicine; ATTEND Family Medicine
PROC: XW033E5 Introduction of Remdesivir Anti-infective into Peripheral Vein, Percutaneous Approach, New Technology Group 5 (ICD-10-PCS; principal; 2020-07-10)
PROC: 3E02340 Introduction of Influenza Vaccine into Muscle, Percutaneous Approach (ICD-10-PCS; 2020-07-12)
DX: U07.1 COVID-19 (principal); J12.89 Other viral pneumonia; J96.01 Acute respiratory failure with hypoxia; N17.9 Acute kidney failure, unspecified; E11.9 Type 2 diabetes mellitus without complications; I10 Essential (primary) hypertension; E78.5 Hyperlipidemia, unspecified; I87.2 Venous insufficiency (chronic) (peripheral); E66.01 Morbid (severe) obesity due to excess calories; Z23 Encounter for immunization; Z79.84 Long term (current) use of oral hypoglycemic drugs; Z87.891 Personal history of nicotine dependence
CPT/HCPCS: 36415; 71045; 80048; 80053; 81001; 82553; 82803; 82962; 83036; 83605; 83880; 84443; 84484; 85025; 85027; 87040; 90471; 90686; 93005; 93010; 94640; 96374; 99285; G0008; J0456; J0696; J1100; J1650; J1815; J3490; J7030; J7050; J7613

== ENCOUNTER → 2020-08-17 | Outpatient (CLI) | payer MEDICARE, BC ==
[2020-08-17 09:07] LABS: ALBUMIN 4.1 g/dL (3.5-5.0); ALKALINE PHOSPHATASE 63 U/L (38-126); ANION GAP 7 (5-19); ASPARTATE AMINO TRANSFERASE 43 U/L (17-59); BILIRUBIN,DIRECT 0.2 mg/dL (0.0-0.4); BILIRUBIN,TOTAL 0.6 mg/dL (0.2-1.3); BLOOD UREA NITROGEN 27 mg/dL (7-20); CALCIUM 9.6 mg/dL (8.4-10.2); CARBON DIOXIDE 26 mmol/L (22-30); CHLORIDE 105 mmol/L (98-107); CHOLESTEROL 115.18 mg/dL (0-200); GLUCOSE 133 mg/dL (75-110); POTASSIUM 4.5 mmol/L (3.6-5.0); TOTAL PROTEIN 6.7 g/dL (6.3-8.2); TRIGLYCERIDES 43 mg/dL (<150)
[2020-08-17 09:18] LABS: DIRECT LDL 47 mg/dL (<100)
--- NOTE | 2020-08-17 12:52 | RADIOLOGY REPORT (SQ) ---
EXAM DESCRIPTION: CHEST 2 VIEWS IMAGES COMPLETED DATE/TIME: 08/17/2020 8:14 am REASON FOR STUDY: (U07.1)COVID-19 COMPARISON: 07/10/2020 EXAM PARAMETERS: NUMBER OF VIEWS: two views TECHNIQUE: Digital Frontal and Lateral radiographic views of the chest acquired. RADIATION DOSE: NA LIMITATIONS: none FINDINGS: LUNGS AND PLEURA: The lungs are better aerated than on the prior study. No acute infiltra te or effusion. MEDIASTINUM AND HILAR STRUCTURES: No masses or contour abnormalities. HEART AND VASCULAR STRUCTURES: Heart normal size. No evidence for failure. BONES: No acute findings. HARDWARE: None in the chest. OTHER: No other significant finding. IMPRESSION: NO ACUTE RADIOGRAPHIC FINDING IN THE CHEST. TECHNICAL DOCUMENTATION: JOB ID: [id number] [employer]- All Rights Reserved Reading location - IP/workstation name: [email or web address]
[2020-08-18 12:36] LABS: CREATININE URINE 138.4 mg/dL (Not Estab.); MICROALBUMIN URINE 5.5 ug/mL (Not Estab.)
== END ==
LOC: OD 07:36
PROVIDERS: ATTEND Family Medicine
DX: E11.9 Type 2 diabetes mellitus without complications (principal); E78.5 Hyperlipidemia, unspecified; Z09 Encounter for follow-up examination after completed treatment for conditions other than malignant neoplasm; Z86.19 Personal history of other infectious and parasitic diseases
CPT/HCPCS: 36415; 71046; 80053; 80061; 82043; 82570; 83036

== ENCOUNTER → 2020-09-11 | Outpatient (CLI) | payer MEDICARE, BC ==
[~2020-09-11] MED LIST: COVID-19 VACCINE (PFIZER)/PF 30 MCG/0.3 ML VIAL IM ONE; EPINEPHRINE INJ/PF 1 MG/1 ML AMPULE IM PRN
== END ==
LOC: EMPHEALTH 17:30
PROVIDERS: ATTEND Internal Medicine
DX: Z23 Encounter for immunization (principal)
CPT/HCPCS: 91300